=== PATIENT | female | born 1995 | race Caucasian/White ===

== ENCOUNTER 2016-12-08 21:26 | Emergency (ER) | payer BC ==
[2016-12-08 21:35] VITALS: BP 136/81
[2016-12-08] MEDS ORDERED: Amoxicillin CAP* 500 MG PO ONE (22:25)
[2016-12-08] MEDS ORDERED: Ibuprofen TAB* 400 MG PO ONE (22:28)
--- NOTE | 2016-12-08 22:36 | UC ---
Ear Complaint HPI - HPI Summary HPI Summary: 21 y/o female present to the urgent care c/o B/L ear pain since today. Pt states this morning the pain was dull, but in the afternoon whe she was swimming at the [employer] the pain increased. Pain is 7/10 specially on the left ear. Patient states she felt warm, but didn't take her temp. She took Ibuprofen 3 tabs of 200mg and symptoms improved. She denies N, V/D and has not other complaint. - History of Current Complaint Chief Complaint: UCEar Stated Complaint: EAR PAIN Time Seen by Provider: 12/08/16 22:18 Hx Obtained From: Patient Hx Last Menstrual Period: 11/24/16 ?: No Onset/Duration: Sudden Onset, Lasting Hours, Still Present Severity Initially: Mild Severity Currently: Moderate Pain Intensity: 7 Pain Scale Used: 0-10 Numeric Alleviating Factors: OTC Meds Associated Signs/Symptoms: Negative: Discharge, Hearing Loss, Trauma to Ear - Allergies/Home Medications Allergies/Adverse Reactions: Allergies Allergy/AdvReac Type Severity Reaction Status Date / Time No Known Allergies Allergy Verified 12/08/16 21:35 Home Medications: Home Medications Drospirenone-Ethinyl Estradiol [Mitzi 28 3-0.03 mg] 1 tab PO 12/08/16 [History] PMH/Surg Hx/FS Hx/Imm Hx Previously Healthy: Yes - Surgical History Surgical History: Yes Surgery Procedure, Year, and Place: bilat knee surgeries - Family History Family History: Breast cancer - Social History Occupation: Employed Full-time Lives: With Family Alcohol Use: Occasionally Substance Use Type: None Smoking Status (MU): Never Smoked Tobacco Review of Systems Constitutional: Fever - felt warm at home took ibuprofen and symptoms improved Skin: Negative Eyes: Negative ENT: Ear Ache - B/L Respiratory: Negative Cardiovascular: Negative Gastrointestinal: Negative Genitourinary: Negative Motor: Negative Neurovascular: Negative Musculoskeletal: Negative Neurological: Negative Psychological: Negative All Other Systems Reviewed And Are Negative: Yes Physical Exam Triage Information Reviewed: Yes Appearance: Well-Appearing, No Pain Distress, Well-Nourished, Obese Vital Signs: Initial Vital Signs Temp 98.7 F 12/08/16 21:31 Pulse 92 12/08/16 21:31 Resp 18 12/08/16 21:31 BP 136/81 12/08/16 21:31 Pulse Ox 100 12/08/16 21:31 Vital Signs Reviewed: Yes Eye Exam: Normal Eyes: Positive: Conjunctiva Clear - PERRLA , EOMI, fundi grossly normal ENT: Positive: Pharynx normal, TM red - B/L TMs with erythema, bulging and no light reflex, More in the LF TMs. Tenderness of palpation of the pinna. B/L ear canal clear, Neck exam: Normal Neck: Positive: Supple, Nontender, Enlarged Nodes @ - on the left cervical lymphnode with tenderness on palpation Respiratory Exam: Normal Respiratory: Positive: Chest non-tender, Lungs clear, Normal breath sounds Cardiovascular Exam: Normal Cardiovascular: Positive: RRR, No Murmur, Pulses Normal Abdominal Exam: Normal Abdomen Description: Positive: Nontender, No Organomegaly, Soft. Negative: CVA Tenderness (R), CVA Tenderness (L) Bowel Sounds: Positive: Present Musculoskeletal Exam: Normal Musculoskeletal: Positive: Strength Intact, ROM Intact, No Edema Neurological Exam: Normal Psychological Exam: Normal Skin Exam: Normal Ear Complaint Course/Dx - Course Course Of Treatment: 21 y/o female present to the urgent care c/o B/L ear pain since today. Hx obtained. PE abnormal findings: ENT: Positive: Pharynx normal , TM red - B/L TMs with erythema, bulging and no light reflex, More in the LF TMs. Tenderness of palpation of the pinna. B/L ear canal clear. Pt given 2 tabs of amoxicillin PO and Ibuprofen 800mg PO at the clinic since pharmacy is closed. Medication Orders sent to [facility]. Pt advised to continue full course of antibiotic to avoid recurrence and resistance. Avoid swimming. Continue with the Ibuprofen aftr meals OTC at home to alleviate pain. - Differential Dx/Diagnosis Differential Diagnosis/HQI/PQRI: Barotrauma, Cerumen Impaction, Otitis Externa, Otitis Media, Perforated TM Provider Diagnoses: billatral otitis media. Discharge - Discharge Plan Condition: Stable Disposition: HOME Prescriptions: Amoxicillin (*) [Amoxicillin 875 MG (*)] 875 mg PO BID #19 tab Patient Education Materials: Otitis Media (ED) Referrals: [facility] [Primary Care Provider] - If Needed Additional Instructions: Please take medications as instructed and finish the full course of treatment to avoid recurrent infection. Take Ibuprofen after meals OTC to alleviate pain. If you do not improve or if symptoms worsen after the course of antibiotics, you should either follow up with your PCP or return to the urgent care for further evaluation and treatment.
== END 2016-12-08 22:40 | disposition home or self-care (01) ==
LOC: UCEAST 21:26
DX: H66.93 Otitis media, unspecified, bilateral (principal)
CPT/HCPCS: 99203; A9270-GY; G0463